=== PATIENT | female | born 1985 | race Caucasian/White ===

== ENCOUNTER 2016-12-03 17:20 | Emergency (ER) | payer OTHER ==
[~2016-12-03] VITALS: Ht 170.2 cm; Wt 143.4 kg
[~2016-12-03 17:20] MED LIST: ENDOCET 5-3251 EACH PO; FLAGYL500 MG PO; IBUPROFEN800 MG PO; MOTRIN800 MG PO; NATALCARE RX1 TABLE1 PO; NOHOMEMEDS
[2016-12-03 18:40] VITALS: BP 131/94
== END 2016-12-03 18:41 | disposition home or self-care (01) ==
LOC: EXP 17:20 → EME 17:20 → EXP 18:41
DX: R60.0 Localized edema (principal); Z86.718 Personal history of other venous thrombosis and embolism; Z91.018 Allergy to other foods; F17.200 Nicotine dependence, unspecified, uncomplicated
CPT/HCPCS: 93970; 99281; 99283

== ENCOUNTER 2016-12-24 18:07 | Emergency (ER) | payer OTHER ==
[~2016-12-24] VITALS: Ht 170.2 cm; Wt 144.7 kg
[2016-12-24 18:17] VITALS: BP 146/103
[2016-12-24 18:57] LABS: HEMATOCRIT 38.9 % (36.0-46.0); MCH 29.1 PG (29.0-34.0); MCHC 33.9 G/DL (30.0-36.0); MCV 85.7 FL (83-99); MEAN PLAT.VOLUME 8.8 uM^3 (9.5-12.4); PLATELET COUNT 259 K/uL (156-360); RBC DIS.WIDTH-CV 12.6 % (11.8-14.6); RED BLOOD COUNT 4.54 M/uL (3.80-5.20); WHITE BLOOD COUNT 8.9 K/uL (4.1-10.2)
[2016-12-24 19:06] LABS: CHLORIDE 109 mEq/L (99-109); POTASSIUM 3.6 mEq/L (3.7-5.4); SODIUM 140 mEq/L (136-147)
[2016-12-24 19:08] LABS: GLUCOSE 115 mg/dL (70-99)
[2016-12-24 19:09] LABS: ANION GAP 8 MEQ/L (2-14)
[2016-12-24 19:10] LABS: TOTAL BILIRUBIN 0.3 mg/dL (0.0-1.0)
[2016-12-24 19:11] LABS: ALKALINE PHOSPHATASE 60 IU/L (3-129)
[2016-12-24 19:12] LABS: GFR ESTIMATE (CALCULATED) > 59 mL/min/
[2016-12-24 19:13] LABS: UREA NITROGEN (BUN) 12 mg/dL (9-23)
[2016-12-24 19:16] LABS: TROP-I INTERPRETATION NEGATIVE; TROPONIN-I < 0.01 ng/mL (0.0-0.30)
[2016-12-24 19:20] LABS: QUANTITATIVE HCG < 4.0 MIU/ML
[2016-12-24 19:59] LABS: ADD MIUA? NO; BILIRUBIN NEGATIVE; BLOOD NEGATIVE; COLOR YELLOW ((YELLOW)); GLUCOSE (STRIP) NEGATIVE; KETONES NEGATIVE; LEUKOCYTES NEGATIVE; NITRITE NEGATIVE; PROTEIN (STRIP) NEGATIVE; SPECIFIC GRAVITY 1.023 (1.000-1.030); UCUL ADDED? NO; UROBILINOGEN 0.2 MG/DL (0.2-1.0)
== END 2016-12-24 20:52 | disposition left against medical advice (07) ==
LOC: EME 18:07
PROVIDERS: Physician Assistant
DX: R51 Headache (principal); R07.9 Chest pain, unspecified; I10 Essential (primary) hypertension; R06.02 Shortness of breath; R05 Cough; M25.50 Pain in unspecified joint; R20.0 Anesthesia of skin; R20.2 Paresthesia of skin; M79.602 Pain in left arm; I25.2 Old myocardial infarction; Z87.891 Personal history of nicotine dependence
CPT/HCPCS: 80053; 81003; 84484; 84702; 85027; 93005; 99281; 99284

== ENCOUNTER 2017-12-23 17:05 | Emergency (ER) | payer OTHER ==
[~2017-12-23] VITALS: Ht 170.2 cm; Wt 156.2 kg
[2017-12-23 18:03] LABS: HEMATOCRIT 38.1 % (36.0-46.0); HEMOGLOBIN 12.8 G/DL (11.9-15.5); MCH 28.8 PG (29.0-34.0); MCHC 33.6 G/DL (30.0-36.0); MCV 85.6 FL (83-99); PLATELET COUNT 270 K/uL (156-360); RBC DIS.WIDTH-CV 13.2 % (11.8-14.6); RBC DIS.WIDTH-SD 40.5 % (39-53); RED BLOOD COUNT 4.45 M/uL (3.80-5.20); WHITE BLOOD COUNT 10.5 K/uL (4.1-10.2)
[2017-12-23 18:10] LABS: CHLORIDE 106 mEq/L (99-109); POTASSIUM 4.2 mEq/L (3.7-5.4); SODIUM 140 mEq/L (136-147)
[2017-12-23 18:12] LABS: GLUCOSE 98 mg/dL (70-99)
[2017-12-23 18:16] LABS: CREATININE 0.8 mg/dL (0.6-1.3); GFR ESTIMATE (CALCULATED) > 59 mL/min/
[2017-12-23 18:17] LABS: UREA NITROGEN (BUN) 16 mg/dL (9-23)
[2017-12-23 18:25] LABS: QUANTITATIVE HCG < 4.0 MIU/ML
[2017-12-23 18:34] VITALS: BP 152/94
== END 2017-12-23 18:35 | disposition home or self-care (01) ==
LOC: EME 17:05
PROVIDERS: Physician Assistant
DX: R60.0 Localized edema (principal); F32.9 Major depressive disorder, single episode, unspecified; I25.2 Old myocardial infarction; Z87.891 Personal history of nicotine dependence
CPT/HCPCS: 80048; 84702; 85027; 99281; 99283